=== PATIENT | female | born 1935 | race Caucasian/White ===

== ENCOUNTER 2021-05-23 17:17 | Emergency (ER) | payer OTHER, MEDICARE ==
[2021-05-23] MEDS ORDERED: Boostrix 0.5 ML (Tdap) VIAL ONE (18:41)
== END 2021-05-23 20:40 | disposition home or self-care (01) ==
LOC: CSHERS 17:17
DX: S51.812A Laceration without foreign body of left forearm, initial encounter (principal); W54.8XXA Other contact with dog, initial encounter
CPT/HCPCS: 12002; 90471; 90715